=== PATIENT | female | born 1945 | race Caucasian/White ===

== ENCOUNTER 2018-09-29 10:43 | Outpatient (CLI) | payer MEDICARE ==
[~2018-09-29] VITALS: Ht 165.1 cm; Wt 72.6 kg
[~2018-09-29 10:43] MED LIST: ASP81CT PO; DOCU100T7 PO; LORA1TAB59 PO; MULT-963 PO; [UNRECOGNIZED DRUG - OTHER]
[2018-09-29] MEDS ORDERED: ALEN70TA2 PO (10:55)
[2018-09-29] MEDS ORDERED: MULT-351 PO (10:55)
[2018-09-29] MEDS ORDERED: OMG1KC PO (10:55)
[2018-09-29] MEDS ORDERED: CALC600T12 PO (10:55)
[2018-09-29] MEDS ORDERED: ASPI-999 PO (10:55)
[2018-09-29] MEDS ORDERED: LORA10TA76 PO (10:55)
== END 2018-09-29 10:58 | disposition home or self-care (01) ==
LOC: PREOP 10:43
PROVIDERS: ATTEND Surgery
DX: Z01.818 Encounter for other preprocedural examination (principal)

== ENCOUNTER 2018-09-30 11:21 | Day surgery (SDC) | payer MEDICARE ==
[~2018-09-30] VITALS: Ht 165.1 cm; Wt 72.6 kg
[~2018-09-30 11:21] MED LIST changes: +ALEN70TA2 PO; +ASPI-999 PO; +CALC600T12 PO; +LORA10TA76 PO; +MULT-351 PO; +OMG1KC PO
--- OUTSIDE RECORDS SUMMARY | 2018-09-30 11:24 | XMS REPORT ---
Author Author MARTÍN LIMA Organization [facility] Address [address] [place] [address] Care Team Providers Care Butadiene Compressor Operator Name Role Phone [email or web address] Unavailable PROBLEMS Type Condition ICD9-CM Code [id number] Code Onset Dates Condition Status SNOMED Code Problem Adjustment disorder with mixed anxiety and depressed mood F43.23 Active [id number] ALLERGIES No Information ENCOUNTERS Encounter Location Date Diagnosis [facility] [id number] [address] Feb, Adjustment disorder with mixed anxiety and depressed mood F43.23 [facility] [id number] [place] [id number] Jan, Adjustment disorder with mixed anxiety and depressed mood F43.23 [facility] [id number] [address] Dec, Adjustment disorder with mixed anxiety and depressed mood F43.23 IMMUNIZATIONS No Known Immunizations SOCIAL HISTORY Never Assessed REASON FOR VISIT BH f/u mild mood and anxiety issues PLAN OF CARE Activity Details Follow Up Next available Reason: VITAL SIGNS MEDICATIONS Unknown Medications RESULTS No Results PROCEDURES Procedure Date Ordered Result Body Site COUNT INCLUDES THE [facility] VISIT MENTAL HEALTH ESTAB PT Mar 11, 2018 Psychotherapy, patient &/family, 60 minutes, established patient Mar 11, 2018 INSTRUCTIONS MEDICATIONS ADMINISTERED No Known Medications MEDICAL (GENERAL) HISTORY Type Description Date Surgical History No Surgical history information
--- OUTSIDE RECORDS SUMMARY | 2018-09-30 11:25 | XMS REPORT | Continuity of Care Document ---
Author Author [facility] Organization [facility] Address [address] [place] [address] Phone Unavailable Care Team Providers Care Exhaust Emissions Inspector Name Role Phone UNKNOWN PCP Unavailable Insurance Providers Payer Name Policy Number Subscriber Name Relationship Medicare [id number] Keerthi Tello Self / Same As Patient [facility] [id number] Keerthi Tello Self / Same As Patient Advance Directives Directive Response Recorded Date/Time Do You Have A Living Will? No 02/23/14 4:58pm Do You Have a DPOA? No 02/23/14 4:58pm Problems Medical Problems Problem Onset Date Status Palpitations Unknown Active Medications Medication Dose Route Sig Days/Qty Instructions Order Date Discontinued Date Status Aspirin 81 Mg PO DAILY 30 Qty 12/27/13 Active Multivits W-Fe,Other Min/Lut 1 Each PO DAILY 30 Qty 12/27/13 Active Sennosides/Docusate Sodium 1 Each PO DAILY 12/27/13 Active Loratadine 10 Mg PO DAILY 12/27/13 Active Calcium Citrate/Vitamin D3 2 Each PO DAILY 02/23/14 Active Social History Social History Problem Response Recorded Date/Time History of Street Drugs? No 02/23/2014 9:01am Hx Alcohol Use No 02/23/2014 9:01am Hospital Discharge Instructions No hospital discharge instructions. Plan of Care Prescriptions See Medications Section Follow-up Orders EKG Clinic Echo EKG Clinic Functional Status No functional status results. Allergies, Adverse Reactions, Alerts Allergen Type Severity Reaction Status Last Updated No Known Allergies Active 12/27/13 Immunizations No immunization records. Vital Signs Ambulatory Vital Signs Vital Response Date/Time Height 5 ft 5 in 02/23/2014 8:59am Weight 162 lbs 02/23/2014 8:59am Blood Pressure, Sitting, Left Arm 122/64 mm Hg 02/23/2014 8:59am Pulse Rate 73 bpm 02/23/2014 8:59am Body Surface Area 1.85 m2 02/23/2014 8:59am Body Mass Index 27.0 kg/m2 02/23/2014 8:59am Results No known relevant diagnostic tests, laboratory data and/or discharge summary. Procedures No known history of procedures. Encounters Encounter Location Date/Time [facility] 02/23/14 4:58pm Office Visit [facility] 02/23/14 9:00am Registered [facility] 12/27/13 2:40pm Office Visit [facility] 12/27/13 9:30am
--- OUTSIDE RECORDS SUMMARY | 2018-09-30 11:25 | XMS REPORT | Continuity of Care Document ---
Author Author [facility] Organization [facility] Address Unknown Phone Unavailable Support Name Relationship Address Phone DIEGO CHOE Next Of Kin [address] [place] [address] Insurance Providers Payer Name Policy Number Subscriber Name Relationship Blue Cross [facility] Supp [id number] Keerthi Tello Self / Same As Patient [employer] Medicare [id number] Keerthi Tello Self / Same As Patient Advance Directives Directive Response Recorded Date Advance Directives Y 09/23/12 7:56am Health Care Power of Stained Glass Glazier N 09/23/12 7:56am Organ Donor N 09/23/12 7:56am Problems No Known Problems or Medical conditions. Allergies, Adverse Reactions, Alerts Allergen Type Severity Reaction Last Updated No Known Drug Allergies 09/23/12 Medications Medication Dose Units Route Sig Qty Days [Vitimin B Tablet] DAILY Docusate Sodium (Stool Softener) 100 Mg PO DAILY Multivitamin (Multi-Vitamin Daily) 1 Each PO DAILY Loratadine/Pseudoephedrine Sul (Claritin-D 12 Hour Tablet) 1 Each PO DAILY Aspirin (Aspirin 81 Mg Chew Tab) 81 Mg PO DAILY Response Recorded Date/Time Status not known Unknown Results No Known Relevant Diagnostic Tests, Laboratory Data and/or Discharge Summary.
--- OUTSIDE RECORDS SUMMARY | 2018-09-30 11:25 | XMS REPORT ---
Author Author MARTÍN LIMA Organization [facility] Address [address] [place] [address] Care Team Providers Care Mud Analysis Well Logging Captain Name Role Phone MARTÍN LIMA Unavailable PROBLEMS Type Condition ICD9-CM Code [id number] Code Onset Dates Condition Status SNOMED Code Problem Adjustment disorder with mixed anxiety and depressed mood F43.23 Active [id number] ALLERGIES No Information ENCOUNTERS Encounter Location Date Diagnosis [facility] [address] [address] Feb, [facility] [address] [address] Jan, Adjustment disorder with mixed anxiety and depressed mood F43.23 [facility] [id number] [address] Dec, Adjustment disorder with mixed anxiety and depressed mood F43.23 IMMUNIZATIONS No Known Immunizations SOCIAL HISTORY Never Assessed REASON FOR VISIT f/u PLAN OF CARE Activity Details Follow Up client will call Reason: VITAL SIGNS MEDICATIONS Unknown Medications RESULTS No Results PROCEDURES Procedure Date Ordered Result Body Site [facility] VISIT MENTAL HEALTH ESTAB PT Feb 18, 2018 Psychotherapy, patient &/family, 60 minutes, established patient Feb 18, 2018 INSTRUCTIONS MEDICATIONS ADMINISTERED No Known Medications MEDICAL (GENERAL) HISTORY Type Description Date Surgical History No Surgical history information
--- OUTSIDE RECORDS SUMMARY | 2018-09-30 11:25 | XMS REPORT | Continuity of Care Document ---
Author Organization Unknown Address Unknown Allergies Active Description Code Type Severity Reaction Onset Reported/Identified Relationship to Patient Clinical Status Yes Pollen, grass [id number] Pollen Allergy Moderate N/A Yes No Known Allergies NKA Miscellaneous Allergy Unknown N/A 12/27/2013 Medications There is no data. 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), unspecified site 01/31/2015 Domenica Salas Z12.31 Encounter for screening mammogram for malignant neoplasm of breast 05/02/2017 Lisa Duarte Z00.01 Encounter for general adult medical examination with abnormal findings 05/02/2017 Lisa Duarte M19.042 Primary osteoarthritis, left hand 05/02/2017 Lisa Duarte K21.9 Gastro- esophageal reflux disease without esophagitis 05/02/2017 Lisa Duarte K21.9 Gastro- esophageal reflux disease without esophagitis 05/02/2017 Lisa Duarte N60.11 Diffuse cystic mastopathy of right breast 05/02/2017 Lisa Duarte N60.12 Diffuse cystic mastopathy of left breast 06/18/2017 Lisa Duarte M85.89 Other specified disorders of bone density and structure, multiple sites 06/18/2017 Lisa Duarte Z11.59 Encounter for screening for other viral diseases 09/24/2017 Lisa Duarte K21.9 Gastro- esophageal reflux disease without esophagitis 09/24/2017 Lisa Duarte B07.0 Plantar wart 12/03/2017 Lisa Duarte B07.0 Plantar wart 05/13/2018 LISA DUARTE Z1231 Encounter for screening mammogram for malignant neoplasm of breast 05/13/2018 LISA DUARTE Z803 Family history of malignant neoplasm of breast 06/03/2018 Lisa Duarte Z00.00 Encounter for general adult medical examination without abnormal findings 06/03/2018 Lisa Duarte M85.89 Other specified disorders of bone density and structure, multiple sites 06/03/2018 Lisa Duarte K21.9 Gastro- esophageal reflux disease without esophagitis Procedures Code Description [place] [address] Screening mammography, bilateral (2-view film study of each breast) 01/31/2015 33690 DEXA 05/02/2017 37608 Preventive medicine, established patient, age 65+ years 05/02/2017 43387 Office/outpatient visit; established patient, level 3 05/02/2017 16323 Screening mammography, bilateral (2-view film study of each breast) 05/02/2017 1000F Tobacco use assessed (CAD, CAP, COPD, PV)1 (DM)4 06/18/2017 1036F Current tobacco non-user (CAD, CAP, COPD, PV)1 (DM)4 06/18/2017 16273 Hep C screen w/ reflex to Quant 06/18/2017 93495 Office/outpatient visit; established patient, level 4 06/18/2017 1000F Tobacco use assessed (CAD, CAP, COPD, PV)1 (DM)4 09/24/2017 1036F Current tobacco non-user (CAD, CAP, COPD, PV)1 (DM)4 09/24/2017 TCARE4 Transfer of Care from Specialist 09/24/2017 87643 Destruct benign lesions other than skin tags/cutaneous vascular proliferat lesions; up to 14 lesions 09/24/2017 33204 Office/outpatient visit; established patient, level 4 09/24/2017 23658 Destruct benign lesions other than skin tags/cutaneous vascular proliferat lesions; up to 14 lesions 12/17/2017 86465 Office/outpatient visit; established patient, level 2 12/17/2017 [id number] Plain Radiography of Bilateral Breasts 05/13/2018 1000F Tobacco use assessed (CAD, CAP, COPD, PV)1 (DM)4 06/03/2018 1036F Current tobacco non-user (CAD, CAP, COPD, PV)1 (DM)4 06/03/2018 38900 Preventive medicine, established patient, age 65+ years 06/03/2018 02026 Office/outpatient visit; established patient, level 3 06/03/2018 Results There is no data. Encounters ACCT No. Visit Date/Time Discharge Status Pt. Type Provider Facility Loc./Unit Complaint [id number] 07/30/2018 09:24:00 07/30/2018 23:59:59 CLS Outpatient LISA DUARTE [id number] 05/13/2018 13:27:00 05/13/2018 23:59:59 CLS Outpatient LISA DUARTE [id number] 01/01/2018 09:12:00 01/01/2018 23:59:59 CLS Outpatient LISA DUARTE [id number] 06/18/2017 13:53:00 06/18/2017 23:59:59 CLS Outpatient LISA DUARTE [id number] 05/29/2017 08:46:00 05/29/2017 23:59:59 CLS Outpatient LISA DUARTE [id number] 05/02/2017 13:02:00 05/02/2017 23:59:59 CLS Outpatient LISA DUARTE [id number] 01/02/2017 08:41:00 01/02/2017 23:59:59 CLS Outpatient DOMENICA SALAS [id number] 03/29/2016 12:51:00 ACT 2 DOMENICA SALAS [id number] 09/23/2012 07:28:00 09/23/2012 12:10:00 DIS Outpatient [id number] 09/16/2012 07:14:00 09/16/2012 23:59:59 CLS Outpatient [id number] 09/30/2018 12:30:00 PEN Preadmit SITA FLORES, MATIAS [facility] ENDO SCREENING/FAMILY HX COLON CA [id number] 12/12/2015 08:00:00 12/12/2015 23:59:59 CLS Outpatient Matthew FLORES [facility] LUCIE [id number] 12/12/2015 13:45:00 12/12/2015 23:59:00 DIS Outpatient Matthew FLORES [facility] 1 YR F/U NO TESTING [id number] 02/23/2014 16:58:00 02/23/2014 23:59:00 DIS Outpatient Jose Brown DO [facility] [id number] 12/27/2013 14:40:00 12/27/2013 23:59:59 CLS Outpatient Jose Brown DO [facility] Amairani [id number] 01/04/2014 06:44:00 Document Registration [id number] 06/03/2018 13:24:23 06/03/2018 23:59:59 CLS Outpatient Lisa Duarte [id number] 12/17/2017 14:04:50 12/17/2017 23:59:59 CLS Outpatient Lisa Duarte [id number] 09/24/2017 12:57:18 09/24/2017 23:59:59 CLS Outpatient Lisa Duarte [id number] 06/18/2017 13:21:03 06/18/2017 23:59:59 CLS Outpatient Lisa Duarte [id number] 05/02/2017 09:58:32 05/02/2017 23:59:59 CLS Outpatient Lisa Duarte [id number] 01/31/2015 13:49:16 01/31/2015 13:50:19 DIS Outpatient Domenica Salas [facility] [id number]
--- OUTSIDE RECORDS SUMMARY | 2018-09-30 11:25 | XMS REPORT ---
Author Author MARTÍN LIMA Organization [facility] Address [address] [place] [address] Care Team Providers Care Moving Consultant Name Role Phone MARTÍN LIMA Unavailable PROBLEMS Type Condition ICD9-CM Code UAQ93-HM Code Onset Dates Condition Status SNOMED Code Problem Adjustment disorder with mixed anxiety and depressed mood F43.23 Active [id number] ALLERGIES No Information ENCOUNTERS Encounter Location Date Diagnosis [facility] [address] [facility] [id number] [address] Jan, [facility] [address] [facility] [id number] [address] Dec, Adjustment disorder with mixed anxiety and depressed mood F43.23 IMMUNIZATIONS No Known Immunizations SOCIAL HISTORY Never Assessed REASON FOR VISIT intake PLAN OF CARE Activity Details Follow Up 4 Weeks Reason: VITAL SIGNS MEDICATIONS Medication Instructions Dosage Frequency Start Date End Date Duration Status Aspir-Low 81 MG Orally Once a day 1 tablet 24h 30 day(s) Active Fosamax 70 MG 1 tablet 30 day(s) Active RESULTS No Results PROCEDURES Procedure Date Ordered Result Body Site Psych diagnostic evaluation, new patient Jan 14, 2018 INSTRUCTIONS MEDICATIONS ADMINISTERED No Known Medications MEDICAL (GENERAL) HISTORY Type Description Date Surgical History No Surgical history information
[2018-09-30] MEDS ORDERED: fentaNYL INJECTION 100 MCG/2 ML AMP IVP ONE (11:30)
[2018-09-30] MEDS ORDERED: MIDAZOLAM 2 MG/2 ML (VERSED) VIAL IVP ONE (11:30)
[2018-09-30] MEDS ORDERED: LIDOCAINE JELLY 2% 6 ML SYRINGE MM PRN (11:30)
[2018-09-30] MEDS ORDERED: NS IV 500 ML 500 ML IV PRN (11:30)
[2018-09-30] MEDS ORDERED: NS IV 500 ML 500 ML ONE (11:41)
--- NOTE | 2018-09-30 12:05 | Conscious Sedation/ASA ---
Conscious Sedation Pre-Proced Time 12:00 ASA Score 2 For ASA 3 and 4: Consider anesthesia and medical clearance. Also, for patients with a history of failed moderate sedation consider anesthesia. Airway Lungs Heart ASA score ASA 1: a normal healthy patient ASA 2: a patient with a mild systemic disease (mid diabetes, controlled hypertension, obesity ASA 3: a patient with a severe systemic disease that limits activity (angina, COPD, prior Myocardial infarction) ASA 4: a patient with an incapacitating disease that is a constant threat to life (CHF, renal failure) ASA 5: a moribund patient not expected to survive 24 hrs. (ruptured aneurysm) ASA 6: a declared brain- patient whose organs are being harvested. For emergent operations, add the letter E after the classification Mallampati Classification Grade 2 Sedation Plan Analgesia, Amnesia, Plan communicated to team members, Discussed options with patient/fam, Discussed risks with patient/fam The patient is an appropriate candidate to undergo the planned procedure, sedation, and anesthesia. The patient immediately re-assessed prior to indication. MATIAS BUCKNER MD Sep 30, 2018 12:05
--- NOTE | 2018-09-30 12:06 | Progress Note-Pre Operative ---
Pre-Operative Progress Note H&P Reviewed The H&P was reviewed, patient examined and no changes noted. Date Seen by Provider: Sep 30, 2018 Time Seen by Provider: 12:00 Date H&P Reviewed: Sep 30, 2018 Time H&P Reviewed: 12:00 Pre-Operative Diagnosis: family hx colon ca MATIAS BUCKNER MD Sep 30, 2018 12:06
--- NOTE | 2018-09-30 12:07 | Discharge Inst-Surgical ---
D/C Lap Instructions-SITA Follow Up Activity as tolerated High Fiber Diet 25g or more per day Avoid Alcohol, Caffeine, Spicy [place] and Acid foods. Drink 64 fluid oz or more of fluids per day. Symptoms to Report: Fever over 101 degree F, Nausea/Vomiting If any problems/questions: Contact your physician or go to Emergency Room MATIAS BUCKNER MD Sep 30, 2018 12:07
[2018-09-30 12:14] VITALS: BP 138/84
[2018-09-30] MEDS ORDERED: ONDANSETRON 4 MG/2 ML (SDV) Z0FRAN IVP PRN (12:15)
[2018-09-30] MEDS ORDERED: HYDROcodone/APAP 5 MG/325 MG (LORTAB) TAB PO PRN (12:15)
[2018-09-30] MEDS ORDERED: ACETAMINOPHEN 325 MG TABLET PO PRN (12:15)
[2018-09-30] MEDS ORDERED: morphine INJ 10 MG/ML 1ML (SYR OR VIAL) IVP PRN ×2 (12:15)
[2018-09-30] MEDS ORDERED: ONDANSETRON 4 MG/2 ML (SDV) Z0FRAN ONE (13:41)
[2018-09-30 14:30] VITALS: BP 111/63
--- NOTE | 2018-09-30 14:39 | Progress Note-Post Operative ---
Post-Operative Progess Note Surgeon (s)/Logistics Planning Manager (s) Surgeon MATIAS BUCKNER MD Logistics Planning Manager: none Pre-Operative Diagnosis family hx colon ca Post-Operative Diagnosis mild chronic stage 2 ext and int hemorrhoids. Procedure & Operative Findings Date of Procedure 09/30/18 Procedure Performed/Findings colonoscopy Anesthesia Type cs Estimated Blood Loss Estimated blood loss (mL): minimal Specimens/Packing Specimens Removed none MATIAS BUCKNER MD Sep 30, 2018 14:39
[2018-09-30 14:55] VITALS: BP 119/70
[2018-09-30 15:00] VITALS: BP 119/70
--- NOTE | 2018-09-30 21:18 | OPERATIVE REPORT ---
DATE OF SERVICE: 09/30/2018 ATTENDING PHYSICIAN: Dr. Lisa Duarte in [place], [place]. PREOPERATIVE DIAGNOSIS: Screening colonoscopy with family history of colon cancer. POSTOPERATIVE DIAGNOSIS: Mild chronic stage II external and internal hemorrhoids. Remainder of the rectum and colon were normal. PROCEDURE: Colonoscopy. SURGEON: Matias Buckner MD ANESTHESIA: Conscious sedation. ESTIMATED BLOOD LOSS: Minimal. FINDINGS: Same as postop. DISPOSITION: The patient tolerated the procedure well. INDICATIONS: The patient is a 73-year-old female in need of a followup screening colonoscopy. Her last colonoscopy was 6 years ago, which was normal. She does report a family history of colon cancer with her mother having the disease. She is otherwise doing well and does not report any major issues with diarrhea, no constipation as well as no red blood per rectum nor any dark tarry stools. DESCRIPTION OF PROCEDURE: The patient was brought to the endoscopy suite, laid in the left lateral decubitus position. After adequate IV pain and sedating medications and conscious sedation anesthesia, a digital rectal examination was performed. Mild chronic stage II external and internal hemorrhoids were identified, which were not actively edematous nor inflamed and no bleeding. Normal sphincter tone was felt and there are no palpable masses. The endoscope was then intubated to the anus and the rectum gently insufflated. The endoscope was then advanced to the valves of Kimble of the rectum with no polyps or any neoplasms identified. We then proceeded through the sigmoid colon where no diverticulosis identified. The endoscope was then advanced to the remainder of the descending, transverse and ascending colon to the cecum. These segments were normal. There were no polyps or nor any neoplasms identified throughout the colon or rectum. The endoscope was then slowly withdrawn with taking a second look and suctioning of residual air with no additional findings. The patient tolerated the procedure well. We will recommend continued medical management with a high fiber diet with at least 25 grams of fiber per day as well as significant amounts of water to promote with at least one soft bowel movement on a daily basis. We will recommend a followup colonoscopy in approximately 5 years. Job ID: [id number] DocumentID: [id number] Dictated Date: 09/30/2018 14:24:03 Medical Record Librarian Date: 09/30/2018 21:17:24 Dictated By: MATIAS BUCKNER MD
== END 2018-09-30 15:00 | disposition home or self-care (01) ==
LOC: ENDO 11:21
PROVIDERS: ATTEND Surgery
DX: Z12.11 Encounter for screening for malignant neoplasm of colon (principal); Z80.0 Family history of malignant neoplasm of digestive organs; K64.1 Second degree hemorrhoids; M85.80 Other specified disorders of bone density and structure, unspecified site; Z79.82 Long term (current) use of aspirin; Z79.899 Other long term (current) drug therapy